=== PATIENT | female | born 2000 | race African-American/Black ===

== ENCOUNTER 2024-08-20 21:44 | Emergency (ER) | payer BC, SELFPAY ==
[2024-08-20 21:46] VITALS: BP 126/72; PULSE 103; RESP 15; TEMP 36.2; O2SAT 97
[2024-08-20 22:32] LABS: Influenza A QL RT-PCR Negative (Negative); Influenza B QL RT-PCR Negative (Negative); RSV RNA, RT-PCR Negative (Negative); SARS-CoV-2 RNA PCR Negative (Negative)
--- OUTSIDE RECORDS SUMMARY | 2024-08-21 01:41 | XMS_ITS | Clinical Summary ---
Author Organization [facility]care Address [address] [place] [address] Care Team Providers Care Marine Engineer Cpvec Name Role Phone Ilia Paul MD Primary Care Provider [phone] Allergies No known active allergies Medications Aerochamber Plus Flow-Vu spacer USAGE WITH ASTHMA INHALER 02/13/20 22 Active montelukast (SINGULAIR) 10 mg tablet Take 1 tablet (10 mg total) by mouth nightly Active fexofenadine (ROHIT) 180 mg tablet Take 1 tablet (180 mg total) by mouth daily Active naloxone (NARCAN) 4 mg/actuation spray,non-aerosol nasal sprayIndications:V entral hernia without obstruction or gangrene Administer 1 spray into one nostril as needed (for overdose) May repeat every 2 to 3 minutes in alternating nostrils until medical assistance becomes available. 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 0 04/12/2022 Overview (04/12/2022): Added automatically from request for surgery [id number] Asthma 09/08/2008 Immunizations Name Administration Dates Next Due DTaP 03/26/2005,02/09/2001,05/21/2000 ,03/13/2000,01/17/2000 HPV, Quadrivalent 02/11/2014 Hep B / HiB 02/09/2001,03/13/2000,01/17/2000 HiB 05/21/2000,01/17/2000 IPV 03/26/2005,05/21/2000,03/13/2000 ,01/17/2000 MMR 03/26/2005,02/09/2001 Meningococcal MCV4P 03/02/2016 Tdap 02/25/2011 Varicella 02/11/2014,03/01/2002 Family History Medical History Relation Comments Diabetes Maternal Grandmother Hypertension Mother Relation Status Comments Maternal Grandmother Mother Social History Tobacco Use Types Packs/Day Years Used Date Smoking Tobacco: Never Smokeless Tobacco: Never Tobacco Cessation:Counseling Given: Not Answered Alcohol Use Standard Drinks/Week Comments Never 0 (1 standard drink = 0.6 oz pur e alcohol) AUDIT-C Answer Date Recorded Q1: How often do you have a drink containing alc ohol? Monthly or less 07/23/2022 Q2: How many drinks containi ng alcohol do you have on a typical day when you are drinking? 1 or 2 07/23/2022 Q3: How often do you have si x or more drinks on one occasion? Less than monthly 07/23/2022 Hunger Vital Sign Answer Date Recorded Within the past 12 months, y ou worried that your food would run out before you got the money to buy more. Never true 07/23/19 23 Within the past 12 months, t he food you bought just didn't last and you didn't have money to get more. Never true 07/23/2022 PRAPARE - Transportation Answer Date Re corded In the past 12 months, has l ack of transportation kept you from medical appointments or from getting medications? No 09/2022 In the past 12 months, has l ack of transportation kept you from meetings, work, or from getting things needed for daily living? No 07/23/2022 Comments No Sex and Gender Information Value Date Recorded Sex Assigned at Not on file Legal Sex Female 8:59 PM CDT Gender Identity Not on file Sexual Orientation Not on file Last Filed Vital Signs Vital Sign Reading Time Taken Comments Blood Pressure 105/60 09/04/2022 1:30 PM NEMATOLOGIST Pulse 69 09/04/2022 1:30 PM NEMATOLOGIST Temperature 36.2 ??C (97.2 ??F) 09/04/2022 1:30 PM CS T Respiratory Rate 16 08/05/2022 9:27 AM NEMATOLOGIST Oxygen Saturation 96% 09/04/2022 1:30 PM NEMATOLOGIST Inhaled Oxygen Concentration - - Weight 72.1 kg (159 lb) 09/04/2022 1:30 PM NEMATOLOGIST Height 154.9 cm (5' 1 ) 09/04/2022 1:30 PM NEMATOLOGIST Body Mass Index 30.04 09/04/2022 1:30 PM NEMATOLOGIST Plan of Treatment Health Maintenance Due Date Last Done Comments Pap Smear 1999 AMB Pneumococcal 0-64 yrs (1 of 2 - PCV) 11/04/2005 HPV Vaccines (2 - Risk 3-dose series) 03/11/2014 02/11/2014 DTaP,Tdap,and Td Vaccines (7 - Td or Tdap) 02/25/2021 02/25/2011, 03/26/2005, 02/09/2001, Additional history exists COVID-19 Vaccine (3 - season) 2024 03/15/2021, 02/22/2021 Influenza Vaccine (#1) 2024 RSV Vaccines and 60 Years or Older (1 - 1-dose 75+ series) 11/04/2074 HIB Vaccines Completed 02/09/2001, 07/1999, 03/13/2000, Additional history exists Hepatitis B Vaccines Completed 02/09/2001, 03/13/2000, 01/17/2000 IPV Vaccines Completed 03/26/2005, 07/1999, 03/13/2000, Additional history exists MMR Vaccines Completed 03/26/2005, 02/09/2001 Varicella Vaccines Completed 02/11/2014, 03/01/2002 Meningococcal ACWY Vaccine Completed 03/02/2016 Meningococcal B Vaccine Aged Out 03/02/2016 No l onger eligible based on patient's age to complete this topic Hepatitis A Vaccines Aged Out No long er eligible based on patient's age to complete this topic RSV Vaccines <20 Months Aged Out No l onger eligible based on patient's age to complete this topic Insurance ([facility]) [facility] NIKHIL MARTINEZ [facility] Advance Directives For more information, please contact: [phone] * Full Code (Latest Code Status on File) Date Activated Date Inactivated Comments 08/05/2022 6:00 AM 08/05/2022 12:49 PM Care Teams Marine Engineer Cpvec Relationship Specialty Start Date End Date Ilia Paul MD [address] [place] [address] PCP - General Family Medicine 06/27/22
--- OUTSIDE RECORDS SUMMARY | 2024-08-21 01:41 | XMS_ITS | Encounter Summary ---
Author Organization [facility] althcare Address [address] [place] [address] Care Team Providers Care Business Strategy Manager Name Role Phone Ilia Paul MD Primary Care Provider [phone] Encounter Details Date Type Department Care Team (Late st Contact Info) Description 04/09/2022 Prep for Case [facility] General Surgery [address] [facility] [address] [place] [address] Abel Bermeo MD [address] [facility] [address] [place] [address] Social History Tobacco Use Types Packs/Day Years Used Date Smoking Tobacco: Never Smokeless Tobacco: Never Alcohol Use Standard Drinks/Week Comments Never 0 (1 standard drink = 0.6 oz pur e alcohol) AUDIT-C Answer Date Recorded Q1: How often do you have a drink containing alc ohol? Never 07/26/2020 Average Number of Drinks Not on file 021 Frequency of Binge Drinking Not on file 12/2020 Comments No Sex and Gender Information Value Date Recorded Sex Assigned at Not on file Legal Sex Female 8:59 PM CDT Gender Identity Not on file Sexual Orientation Not on file documented as of this encounter Plan of Treatment Not on file documented as of this encounter Visit Diagnoses Not on filedocumented in this encounter Care Teams Business Strategy Manager Relationship Specialty Start Date End Date Ilia Paul MD [address] [place] [address] PCP - General Family Medicine 06/27/22 documented as of this encounter
--- OUTSIDE RECORDS SUMMARY | 2024-08-21 01:41 | XMS_ITS | Encounter Summary ---
Author Organization [facility] al[facility]care Address [address] [place] [address] Care Team Providers Care Hospital Coder Name Role Phone Ilia Paul MD Primary Care Provider [phone] Encounter Details Date Type Department Care Team (Late st Contact Info) Description 02/18/2022 Documentation [facility] Medical Group General Surgery [address] [facility] [address]rd [place] [address] Nichole Palma PA [place] [address] [address] [facility] [address] [place] [address] Social History Tobacco Use Types Packs/Day Years [...] on filedocumented in this encounter Care Teams Hospital Coder Relationship Specialty Start Date End Date Ilia Paul MD [address] [place] [address] PCP - General Family Medicine 06/27/22 documented as of this encounter
--- OUTSIDE RECORDS SUMMARY | 2024-08-21 01:41 | XMS_ITS | Continuity of Care Document ---
Author Organization [employer] [facility] [employer] [facility] Address [address] [place] [address] Phone Care Team Providers Care Seat Maker Name Role Phone Irving Gaston DMD Unavailable Unavailable Procedures Procedure Date Prophylaxis Child Topical Application Of Fluoride (Prophyl axis Not I Comprehensive Oral Evaluation 1 [employer] Advance Directives Directive Yes / No Effective Date File Name No Information Encounters Encounter Description Practice Location Reason(s) For Visit Diagnoses Date Provider Providers Copied on Encounter [employer], [address], [place], [place], [id number], tel:[phone] [facility] Dental examination [address], [place], [place], [id number], . tel:[phone] Referring Provider: Irving Escoto, [address], [place], [address] . tel:[phone] [employer] [facility], [address], [place], [place], [id number], tel:[phone] [facility] Dental examination No Information Family History Family Member Type Diagnosis Age At Onset No Information Payers Payer name Insurance type Covered alliance party ID Authordamarismartha jairyann(s) D [employer] CI [id number] Social History Type Description Quantity Date Captured Comments Sex Female Smoking Status No Information Chief Complaint And Reason For Visit No Information Reason For Referral Reason For Referral No Information History Of Present Illness Encounter Date Complaint History Of Prese nt Illness No Information Functional Status Date Functional Assessmen t No Information Instructions Date Instruction Additional Infor mation No Information Assessments Type Assessment Date No Information Patient Care Teams Name Effective Dates (start - stop) Status Members No Information
--- OUTSIDE RECORDS SUMMARY | 2024-08-21 01:41 | XMS_ITS | Encounter Summary ---
Author Organization [facility] al[facility]care Address [address] [place] [address] Care Team Providers Care Cut Off Operator Scorer Name Role Phone Ilia Paul MD Primary Care Provider [phone] Encounter Details Date Type Department Care Team (Late st Contact Info) Description 10/21/2019 Orders Only [facility] [address] [place] [address] Celine Lloyd LPN Cough Social History Tobacco Use Types Packs/Day Years Used Date Smoking Tobacco: Never Smokeless Tobacco: Never Comments No Sex and Gender Information Value Date Recorded Sex Assigned at Not on file Legal Sex Female 8:59 PM CDT Gender Identity Not on file Sexual Orientation Not on file COVID-19 Exposure Response Date Recorded In the last month, have you been in contact with someone who was confirmed or suspected to have Coronavirus / COVID-19? No / Unsure 10/21/2019 3:09 PM CDT documented as of this encounter Plan of Treatment Not on file documented as of this encounter Procedures Procedure Name Priority Date/Time Associated Diagnosis Comments RESPIRATORY PANEL BY PCR Routine 10/21/2019 3:28 PM CDT Cough documented in this encounter Results * (ABNORMAL) Respiratory Virus Panel by PCR (10/21/2019 3:28 PM CDT) Adenovirus Not Detected Not Detected 10/21/2019 7:16 PM CDT [facility] Bordetella pertussis Not Detected Not Detected 10/21/2019 7:16 PM CDT [facility] Chlamydophila pneumoniae Not Detected Not Detected 10/21/2019 7:16 PM CDT [facility] Coronavirus 229E Not Detected Not Detected 10/21/2019 7:16 PM CDT [facility] Coronavirus HKU1 Not Detected Not Detected 10/21/2019 7:16 PM T [facility] Coronavirus NL63 Detected(A) Not Detected 10/21/2019 7:16 PM T [facility] Coronavirus OC43 Not Detected Not Detected 10/21/2019 7:16 PM T [facility] Human metapneumovirus Not Detected Not Detected 10/21/2019 7:16 PM CDT [facility] Human Rhinovirus/ Enterovirus Not Detected Not Detected 10/21/2019 7:16 PM CDT [facility] Influenza A Not Detected Not Detected 10/21/2019 7:16 PM CDT [facility] Influenza B Not Detected Not Detected 10/21/2019 7:16 PM [facility] Mycoplasma pneumo by PCR Not Detected Not Detected 10/21/2019 7:16 PM T [facility] Parainfluenza 1 Not Detected Not Detected 10/21/2019 7:16 PM T [facility] Parainfluenza 2 Not Detected Not Detected 10/21/2019 7:16 PM T [facility] Parainfluenza 3 Not Detected Not Detected 10/21/2019 7:16 PM CDT [facility] Parainfluenza 4 Not Detected Not Detected 10/21/2019 7:16 PM [facility] Respiratory Syncytial Virus Not Detected Not Detected 10/21/2019 7:16 PM T [facility] Bordetella parapertussis Not Detected Not Detected 10/21/2019 7:16 PM T [facility] Swab (specimen) Nasopharyngeal structure / Unknown 10/21/2019 3:28 PM CDT 10/21/2019 4:26 PM CDT [facility] - 10/21/2019 7:16 PM CDT There is no evidence to suggest that this Respiratory Panel will detect the 2019 Novel Coronavirus (2019-nCoV). [facility] MICROBIOLOGY - GENERAL ORD ERABLES Final Result [address] [address] documented in this encounter Visit Diagnoses Diagnosis Cough documented in this encounter Additional Health Concerns Infection Onset Date Last Indicated Resolved Time R/O Resp Infection 10/21/2019 10/21/2019 0 7:16 PM CDT R/O COVID-19 05/09/2021 05/09/2021 05/10/2021 12:3 4 PM CDT documented as of this encounter Care Teams Cut Off Operator Scorer Relationship Specialty Start Date End Date Ilia Paul MD [address] [place] [address] PCP - General Family Medicine 06/27/22 documented as of this encounter
--- NOTE | 2024-08-21 01:45 | ED.ASTHMA ---
HPI - Asthma General Chief Complaint: Asthma Stated Complaint: shortness of breath/ asthma Time Seen by Provider: 08/21/24 01:23 History of Present Illness HPI Narrative: Patient is a 23-year-old female who presents ER for refill of medication. Has history of asthma. She has run out of her inhaler and is running low on her nebulizer treatments. She has had mild sinus congestion last week and is using her medication more often. No fevers or chills or sweats. No chest pain or chest pressure. No additional complaints. Related Data Allergies Allergy/AdvReac Type Severity Reaction Status Date / Time No Known Allergies Allergy Verified 08/20/24 21:45 Review of Systems Constitutional: Constitutional: Reports no additional constitutional complaints Cardiovascular: Cardiovascular: Reports no additional cardiovascular complaints Respiratory: Respiratory: Reports no additional respiratory complaints PMFSH Past Medical History Medical History (Updated 08/21/24 @ 01:48 by Jose Dillard MD) Asthma Surgical History Surgical History (Updated 08/21/24 @ 01:46 by Jose Dillard MD) History of hernia repair Exam Narrative: GENERAL: Well-appearing, well-nourished, and in no acute distress. HEAD: Normocephalic, atraumatic. CHEST: Clear to auscultation. No respiratory distress. HEART: Regular rate and rhythm. Normal peripheral pulses. EXTREMITIES: Normal range of motion. No edema. SKIN: Warm, dry, no rash. NEURO: Alert and oriented x3. PSYCH: Normal mood and affect. Course Course Emergency Course: Patient resting comfortably. Discussed negative viral swab. Discharge with refills. Vital Signs Vital signs: Vital Signs Temperature 97.1 F L 08/20/24 21:46 Pulse Rate 103 H 08/20/24 21:46 Respiratory Rate 15 08/20/24 21:46 Blood Pressure 126/72 08/20/24 21:46 Pulse Oximetry 97 08/20/24 21:46 Oxygen Delivery Room Air 08/20/24 21:46 Temperature 97.1 F L 08/20/24 21:46 Pulse Rate 103 H 08/20/24 21:46 Respiratory Rate 15 08/20/24 21:46 Blood Pressure 126/72 08/20/24 21:46 Pulse Oximetry 97 08/20/24 21:46 Oxygen Delivery Room Air 08/20/24 21:46 MDM - Asthma Lab Data Labs: Lab Results 08/20/24 Range/Units 21:51 Influenza A (RT-PCR) Negative (Negative) Influenza B (RT-PCR) Negative (Negative) RSV (RT-PCR) Negative (Negative) SARS-CoV-2 RNA (RT-PCR) Negative (Negative) Discharge Plan Discharge Clinical Impression: URI (upper respiratory infection), Medication refill Patient Disposition: Home, Self-Care Condition: Stable Instructions: Asthma (ED) Additional Instructions: Please return to the emergency department if you develop severe and persistent chest pain, difficulty breathing, dizziness, leg swelling or if you are coughing up blood as these can be signs of a medical emergency. Please call your doctor for a follow up appointment to determine the need for further testing. Patient Language: Italian Prescriptions: New ipratropium-albuterol 0.5 mg-3 mg(2.5 mg base)/3 mL solution for nebulization 3 ml inhalation QID PRN (Reason: shortness of breath) Qty: 90 0RF albuterol sulfate 90 mcg/actuation HFA aerosol inhaler 2 puff inhalation QID PRN (Reason: shortness of breath or wheezing) Qty: 8.5 0RF Follow-up/Referrals: PHYSICIAN NOT ON STAFF,NONSTAFF [Primary Care Provider] - Valeriy Aponte MD [Physician] - 1 Week
[2024-08-21 01:58] VITALS: BP 133/82; PULSE 92; RESP 12; TEMP 36.6; O2SAT 98
[2024-08-21 01:59] VITALS: O2SAT 98
== END 2024-08-21 01:59 | disposition home or self-care (01) ==
PROVIDERS: Emergency Provider Emergency Medicine
DX: J06.9 Acute upper respiratory infection, unspecified (principal); Z76.0 Encounter for issue of repeat prescription; J45.909 Unspecified asthma, uncomplicated; Z20.822 Contact with and (suspected) exposure to COVID-19
CPT/HCPCS: 87637; 99283

== ENCOUNTER 2024-11-29 17:36 | Outpatient (CLI) | payer BC, SELFPAY ==
--- NOTE | ~2024-11-29 | XR_ITS ---
EXAMINATION: XR chest 2V Exam Date/Time: 11/29/2024 17:47 CDT HISTORY: Asthma FOLLOW UP XRAYS Comparison: None. RESULT: Lines, tubes, and devices: None. Lungs and pleura: Clear. Cardiomediastinal silhouette: Normal. Other: No acute osseous or upper abdominal finding. IMPRESSION: No acute cardiopulmonary process. Reviewed, dictated and finalized at location K.
--- OUTSIDE RECORDS SUMMARY | 2024-11-29 17:41 | XMS_ITS | Encounter Summary ---
Author Organization [facility] al[facility]care Address [address] [place] [address] Care Team Providers Care Unit Tender Name Role Phone Ilia Paul MD Primary Care Provider [phone] Encounter Details Date Type Department Care Team (Late st Contact Info) Description 10/21/2019 Orders Only [facility] [address] [place] [address] Celine Lloyd LPN Cough Social [...] Detected Not Detected 10/21/2019 7:16 PM CDT [facility] Bordetella pertussis Not Detected Not Detected 10/21/2019 7:16 PM CDT [facility] Chlamydophila pneumoniae (Chlamydia pneumoniae) Not Detected Not Detected 10/21/2019 7:16 PM CDT [facility] Coronavirus 229E Not Detected Not Detected 10/21/2019 7:16 PM CDT [facility] Coronavirus HKU1 Not Detected Not Detected 10/21/2019 7:16 PM T [facility] Coronavirus NL63 Detected(A) Not Detected 10/21/2019 7:16 PM CDT [facility] Coronavirus OC43 Not Detected Not Detected 10/21/2019 7:16 PM CDT [facility] Human metapneumovirus Not Detected Not Detected 10/21/2019 7:16 PM CDT [facility] Human Rhinovirus/ Enterovirus Not Detected Not Detected 10/21/2019 7:16 PM CDT [facility] Influenza A Not Detected Not Detected 10/21/2019 7:16 PM T [facility] Influenza B Not Detected Not Detected 10/21/2019 7:[address] [facility] Mycoplasma pneumo by PCR Not Detected Not Detected 10/21/2019 7:16 PM T [facility] Parainfluenza 1 Not Detected Not Detected 10/21/2019 7:16 PM T [facility] Parainfluenza 2 Not Detected Not Detected 10/21/2019 7:16 PM CDT [facility] Parainfluenza 3 Not Detected Not Detected 10/21/2019 7:16 PM CDT [facility] Parainfluenza 4 Not Detected Not Detected 10/21/2019 7:[address] [facility] Respiratory Syncytial Virus Not Detected Not Detected 10/21/2019 7:16 PM T [facility] Bordetella parapertussis Not Detected Not Detected 10/21/2019 7:[address] [facility] Swab (specimen) Nasopharyngeal structure / Unknown 10/21/2019 3:28 PM CDT 10/21/2019 4:26 PM CDT [facility] - 10/21/2019 7:16 PM CDT There is no evidence to suggest that this Respiratory Panel will detect the 2019 Novel Coronavirus (2019-nCoV). [facility] MI[facility] - GENERAL ORD ERABLES Final Result [address] [address] documented in this encounter Visit Diagnoses Diagnosis Cough documented in this encounter Additional Health Concerns Infection Onset Date Last Indicated Resolved Time R/O Resp Infection 10/21/2019 10/21/2019 0 7:16 PM CDT R/O COVID-19 05/09/2021 05/09/2021 05/10/2021 12:3 4 PM CDT documented as of this encounter Care Teams Unit Tender Relationship Specialty Start Date End Date Ilia Paul MD [address] [place] [address] PCP - General Family Medicine 06/27/22 documented as of this encounter
--- OUTSIDE RECORDS SUMMARY | 2024-11-29 17:41 | XMS_ITS | Encounter Summary ---
Author Organization [facility]care Address [address] [place] [address] Care Team Providers Care Cork Painter And Grader Name Role Phone Ilia Paul MD Primary Care Provider [phone] Encounter Details Date Type Department Care Team (Late st Contact Info) Description 02/18/2022 Documentation [facility] General Surgery [address] [facility] [address]rd [place] [address] Nichole Palma PA [place] [address] [address] [facility] [address] [place] [address] Social History Tobacco Use Types Packs/Day Years [...] on filedocumented in this encounter Care Teams Cork Painter And Grader Relationship Specialty Start Date End Date Ilia Paul MD [address] [place] [address] PCP - General Family Medicine 06/27/22 documented as of this encounter
--- OUTSIDE RECORDS SUMMARY | 2024-11-29 17:41 | XMS_ITS | Clinical Summary ---
Author Organization [facility] al[facility]care Address [address] [place] [address] Care Team Providers Care Rehab Department Manager Name Role Phone Ilia Paul MD Primary Care Provider [phone] Allergies No known active allergies Medications Aerochamber [...] (04/12/2022): Added automatically from request for surgery [id number] Asthma 09/08/2008 Immunizations Name Administration Dates Next [...] Comments Blood Pressure 105/60 09/04/2022 1:30 PM FRUIT GRADER OPERATOR Pulse 69 09/04/2022 1:30 PM FRUIT GRADER OPERATOR Temperature 36.2 C (97.2 F) 09/04/2022 1:30 PM FRUIT GRADER OPERATOR Respiratory Rate 16 08/05/2022 9:27 AM FRUIT GRADER OPERATOR Oxygen Saturation 96% 09/04/2022 1:30 PM FRUIT GRADER OPERATOR Inhaled Oxygen Concentration - - Weight 72.1 kg (159 lb) 09/04/2022 1:30 PM FRUIT GRADER OPERATOR Height 154.9 cm (5' 1 ) 09/04/2022 1:30 PM FRUIT GRADER OPERATOR Body Mass Index 30.04 09/04/2022 1:30 PM FRUIT GRADER OPERATOR Plan of Treatment Health Maintenance Due Date Last Done Comments Pap Smear 1999 AMB Pneumococcal 0-64 yrs (1 of 2 - PCV) 11/04/2005 HPV Vaccines (2 - Risk 3-dose series) 03/11/2014 02/11/2014 DTaP,Tdap,and Td Vaccines (7 - Td or Tdap) 02/25/2021 02/25/2011, 03/26/2005, 02/09/2001, Additional history exists COVID-19 Vaccine (3 - season) 2024 03/15/2021, 02/22/2021 Influenza Vaccine (Season Ended) 2025 RSV Vaccines and 60 Years or Older [...] patient's age to complete this topic Insurance [place] [facility] Advance Directives For more information, please contact: [phone] * Full Code (Latest Code Status on File) Date Activated Date Inactivated Comments 08/05/2022 6:00 AM 08/05/2022 12:49 PM Care Teams Rehab Department Manager Relationship Specialty Start Date End Date Ilia Paul MD [address] [place] [address] PCP - General Family Medicine 06/27/22
--- OUTSIDE RECORDS SUMMARY | 2024-11-29 17:41 | XMS_ITS | Continuity of Care Document ---
Author Organization [employer] Address [address] [place] [address] Phone Care Team Providers Care Classification Inspector Name Role Phone Irving Gaston DMD Unavailable Unavailable Procedures Procedure Date Prophylaxis Child Topical Application Of Fluoride (Prophyl axis Not I Comprehensive Oral Evaluation 1 [employer] Two Films Advance Directives Directive Yes / No Effective Date File Name No Information Encounters Encounter Description Practice Location Reason(s) For Visit Diagnoses Date Provider Providers Copied on Encounter [facility], [address], [place], [place], [id number], tel:[phone] [facility] Dental examination 1 Alek Villatoro. [address], [place], [place], [id number], . tel:[phone] Referring Provider: Irving Escoto, [address], [place], [address] . tel:[phone] [facility], [address], [place], [place], [id number], tel:[phone] [facility] Dental examination No Information Family History Family Member Type Diagnosis Age At Onset No Information Payers Payer name Insurance type Covered constitution party ID Authordamarismartha villegas(s) D [employer] CI [id number] Social History Type Description Quantity Date Captured [...]
--- OUTSIDE RECORDS SUMMARY | 2024-11-29 17:41 | XMS_ITS | Encounter Summary ---
Author Organization [facility] Address [address] [place] [address] Care Team Providers Care Cafe Cook Name Role Phone Ilia Paul MD Primary Care Provider Encounter Details Date Type Department Care Team (Late st Contact Info) Description 04/09/2022 Prep for Case [facility] General Surgery [address] [facility] [address] [place] [id number] Abel Bermeo MD [address] [facility] [address] [place] [address] Social History Tobacco Use Types [...] on filedocumented in this encounter Care Teams Cafe Cook Relationship Specialty Start Date End Date Ilia Paul MD [address] [place] [address] PCP - General Family Medicine 06/27/22 documented as of this encounter
[2024-11-30 08:19] LABS: Hematocrit 44.5 % (37.0-47.0); Hemoglobin 13.6 g/dL (12.0-15.0); Mean Corpuscular HGB Conc 30.6 g/dl (32-36); Mean Corpuscular Hemoglobin 30.1 pg (26-34); Mean Corpuscular Volume 98.5 fl (80-100); Mean Platelet Volume 10.1 fl (7.4-10.4); Platelet Count Result 370 k/mm3 (150-375); Red Blood Count 4.52 M/mm3 (4.2-5.4); Red Cell Distribution Width 14.9 % (11.5-14.5); White Blood Count 9.3 K/mm3 (4.5-10.0)
[2024-11-30 08:51] LABS: Free T4 Free Thyroxine 1.09 ng/dL (0.78-2.19)
[2024-11-30 18:17] LABS: Alanine Aminotransferase 20 U/L (6-35); Albumin Level 4.2 g/dL (3.5-5.1); Alkaline Phosphatase 54 U/L (38-126); Anion Gap 7 mmol/L (4-12); Aspartate Amino Transferase 28 U/L (14-36); Bilirubin,Total 0.3 mg/dL (0.2-1.3); Blood Urea Nitrogen 12 mg/dL (7-17); Calcium 9.2 mg/dL (8.4-10.2); Carbon Dioxide 27 mmol/L (22-30); Chloride 107 mmol/L (98-107); Estimated Glomerular Filt Rate > 60; Glucose 76 mg/dL (65-110); Potassium 3.5 mmol/L (3.4-5.0); Sodium 141 mmol/L (137-145)
[2024-11-30 18:42] LABS: Thyroid Stimulating Hormone 0.626 uIU/mL (0.465-4.680)
[2024-12-02 15:58] LABS: Alternaria alternata IgE Class 4; Aspergillus fumigatus IgE 0.49 kU/L; Bermuda Grass (G2) IgE <0.10 kU/L; Bermuda Grass (G2) IgE Class 0; Cat Dander IgE 1.58 kU/L; Cat Dander IgE Class 2; Cladosporium herbarum IgE 1.82 kU/L; Cladosporium herbarum IgE Clas 2; Cockroach IgE <0.10 kU/L; Cockroach IgE Clas 0; Common Ragweed IgE Class 0/1; Cottonwood IgE <0.10 kU/L; Dermatophagoides Farinae Class 0/1; Dermatophagoides Pterony Class 0/1; Dermatophagoides Pteronyssinus 0.16 kU/L; Dog Dander IgE 0.19 kU/L; Elm (T8) IgE <0.10 kU/L; Elm (T8) IgE Class 0; Hickory/Pecan IgE 0.13 kU/L; Hickory/Pecan IgE Class 0/1; Immunoglobulin E 134 kU/L (<OR=114); Maple Box Elder IgE Class 0/1; Mountain Cedar IgE 0.12 kU/L; Mountain Cedar IgE Class 0/1; Mouse Urine Proteins IgE <0.10 kU/L; Mouse Urine Proteins IgE Class 0; Oak IgE <0.10 kU/L; Peniciliium notatum class 2; Penicillium notatum (M1) IgE 0.72 kU/L; Rough Marsh 0.41 kU/L; Rough Marsh Elder Class 1; Rough Pigweed (W14) IgE <0.10 kU/L; Rough Pigweed (W14) IgE Class 0; Russian Thistle <0.10 kU/L; Sycamore IgE <0.10 kU/L; Sycamore IgE Class 0; Timothy Grass IgE <0.10 kU/L; Timothy Grass IgE Class 0; Walnut Tree IgE <0.10 kU/L; Walnut Tree IgE Class 0; White Ash IgE Class 0/1; White Mulberry IgE <0.10 kU/L; White Mulberry IgE Class 0
[2024-12-03 15:18] LABS: Can f 1 <0.10 kU/L (<0.10); Can f 2 <0.10 kU/L (<0.10); Can f 3 <0.10 kU/L (<0.10); Can f 4 <0.10 kU/L (<0.10); Can f 5 <0.10 kU/L (<0.10); Can f 6 <0.10 kU/L (<0.10); Fel d 1 1.99 kU/L (<0.10); Fel d 2 <0.10 kU/L (<0.10); Fel d 4 <0.10 kU/L (<0.10); Fel d 7 <0.10 kU/L (<0.10)
== END 2024-11-29 17:37 | disposition home or self-care (01) ==
PROVIDERS: PCP Emergency Medicine; Visit Provider Emergency Medicine
DX: Z00.00 Encounter for general adult medical examination without abnormal findings (principal); J45.909 Unspecified asthma, uncomplicated
CPT/HCPCS: 36415; 71046; 80053; 82785; 84439; 84443; 85027; 86003

== ENCOUNTER 2025-01-17 11:22 | Emergency (ER) | payer BC, SELFPAY ==
--- NOTE | 2025-01-17 11:26 | ED.URI ---
HPI - URI/Sore Throat General Chief Complaint: Upper Respiratory Infection Stated Complaint: Asthma Source: patient and RN notes reviewed Mode of arrival: ambulatory Limitations: no limitations History of Present Illness HPI Narrative: Patient is a 24-year-old female who presents to the [facility] with complaints of possible asthma exacerbation. Patient reports history of asthma. She states that she feels as if her asthma has been exacerbated by the heat/allergies. She attempted to contact her primary care physician regarding her symptoms but he referred her to a interior systems carpenter. She states that she is unable to get into the interior systems carpenter until June. She was told by the office that she could call Back her primary care physician who should be able to get her medication until she is able to get into them. Patient states that she has been using what she had left of her nebulizer solution but she ran out. She states that the nebulizers were helping. She reports mild intermittent wheezing and shortness of breath along with an infrequent nonproductive cough. Denies chest pain. Denies recent fever. Related Data Allergies Allergy/AdvReac Type Severity Reaction Status Date / Time No Known Allergies Allergy Verified 01/17/25 11:32 Review of Systems Review of Systems: CONSTITUTIONAL: Denies fever, chills, or sweats. EYES: Denies visual changes, redness, or discharge. ENT: Denies otalgia and sore throat CARDIOVASCULAR: Denies chest pain, palpitations, or edema. RESPIRATORY: Reports cough, wheezing, and dyspnea. GASTROINTESTINAL: Denies abdominal pain, nausea, vomiting, or diarrhea. GENITOURINARY: Denies dysuria or hematuria. SKIN: Denies rash or itching. MUSCULOSKELETAL: Denies back pain, joint pain, or myalgia. NEUROLOGIC: Denies headache, numbness, or weakness. Pertinent positives per HPI. PMFSH Past Medical History Medical History Asthma Surgical History Surgical History History of hernia repair Comments At the time of my signature, I reviewed and agree with the nursing past medical, surgical, social, and family history. There is no relevant family history pertinent to the patient complaint. Exam Narrative: GENERAL: This is a well-nourished, well-developed patient, in no apparent distress. HEAD: normocephalic, atraumatic. EYES: Sclera clear/white. Vision is grossly intact. EARS: External ears normal. Hearing grossly intact. NOSE: External nose normal with no obvious nasal discharge, nares without redness, no rhinorrhea. THROAT: Mucous membranes moist, posterior pharynx clear. NECK: Neck supple, non-tender without lymphadenopathy, masses or thyromegaly. CARDIOVASCULAR: Regular rate and rhythm without murmurs, gallops, or rubs. RESPIRATORY: Diffuse bilateral wheezes throughout. GASTROINTESTINAL: Abdomen soft, non-tender, nondistended. Bowel sounds are active. No hepato-splenomegaly, or palpable masses. No guarding. SKIN: warm, intact with no suspicious lesions or rash, good texture and turgor. NEURO: awake, alert, and oriented to person, place and time. There were no obvious focal neurologic abnormalities. Course Course Level of Care: Express Care Visit Vital Signs Vital signs: Vital Signs Temperature 97.2 F L 01/17/25 11:28 Pulse Rate 83 01/17/25 11:28 Respiratory Rate 18 01/17/25 11:28 Blood Pressure 104/47 L 01/17/25 11:28 Pulse Oximetry 99 01/17/25 11:28 Oxygen Delivery Room Air 01/17/25 11:28 Temperature 97.2 F L 01/17/25 11:28 Pulse Rate 83 01/17/25 11:28 Respiratory Rate 18 01/17/25 11:28 Blood Pressure 104/47 L 01/17/25 11:28 Pulse Oximetry 99 01/17/25 11:28 Oxygen Delivery Room Air 01/17/25 11:28 Reviewed MDM - URI/Sore Throat MDM Narrative Medical decision making narrative: Do not smoke. Avoid smoke of any kind. May use a humidifier in the bedroom. Get plenty of fluids and rest. Take steroids as directed. Use your inhaler every 4-6 hours if needed. Follow up with your MD in 2-5 days. Go to the ER with any new or worsening symptoms. Differential Diagnosis Differential diagnosis: Likely upper respiratory infection, sinusitis, viral infection, bronchitis and other (asthma exacerbation) Critical Care Time Critical Care Time Critical Care Time: No Discharge Plan Discharge Clinical Impression: Asthma exacerbation Qualifiers: Asthma severity: mild Asthma persistence: intermittent Qualified Code(s): J45.21 - Mild intermittent asthma with (acute) exacerbation Patient Disposition: Home Condition: Stable Instructions: Asthma (ED) Additional Instructions: Do not smoke. Avoid smoke of any kind. May use a humidifier in the bedroom. Get plenty of fluids and rest. Take steroids as directed. Use your inhaler every 4-6 hours if needed. Follow up with your MD in 2-5 days. Go to the ER with any new or worsening symptoms. Patient Language: Greenlandic Prescriptions: New albuterol sulfate [Ventolin HFA] 90 mcg/actuation HFA aerosol inhaler 2 puff inhalation QID PRN (Reason: shortness of breath or wheezing) Qty: 8.5 0RF albuterol sulfate 2.5 mg /3 mL (0.083 %) solution for nebulization 2.5 mg inhalation Q4H PRN (Reason: shortness of breath or wheezing) Qty: 75 0RF prednisone 50 mg tablet 50 mg PO DAILY 5 Days Qty: 5 0RF No Action ipratropium-albuterol 0.5 mg-3 mg(2.5 mg base)/3 mL solution for nebulization 3 ml inhalation QID PRN (Reason: shortness of breath) Qty: 90 0RF albuterol sulfate 90 mcg/actuation HFA aerosol inhaler 2 puff inhalation QID PRN (Reason: shortness of breath or wheezing) Qty: 8.5 0RF Follow-up/Referrals: PHYSICIAN,RN [facility] [Primary Care Provider] - Time of Disposition: 11:37
[2025-01-17 11:28] VITALS: BP 104/47; PULSE 83; RESP 18; TEMP 36.2; O2SAT 99
== END 2025-01-17 11:40 | disposition home or self-care (01) ==
PROVIDERS: Emergency Provider Nurse Practitioner
DX: J45.21 Mild intermittent asthma with (acute) exacerbation (principal)
CPT/HCPCS: 99213; G0463